=== PATIENT | female | born 1960 | race Caucasian/White ===

== ENCOUNTER → 2020-09-30 | Outpatient (CLI) | payer OTHER ==
[~2020-09-30] MED LIST: CYCLOBENZAPRINE5 MG PO; HYDROCODON-ACE1 EAC4 PO
== END ==
LOC: KOH-I 14:54
DX: M79.672 Pain in left foot (principal); M25.572 Pain in left ankle and joints of left foot
CPT/HCPCS: 73610; 73630

== ENCOUNTER → 2020-10-15 | Outpatient (CLI) | payer OTHER | LOC: KOH-I 08:00 | DX: M79.672 Pain in left foot (principal); M25.475 Effusion, left foot; G89.29 Other chronic pain; R93.7 Abnormal findings on diagnostic imaging of other parts of musculoskeletal system | CPT/HCPCS: 73718 ==

== ENCOUNTER → 2020-11-05 | Outpatient (CLI) | payer OTHER | LOC: EXRD 14:16 | DX: I82.409 Acute embolism and thrombosis of unspecified deep veins of unspecified lower extremity (principal); M79.669 Pain in unspecified lower leg | CPT/HCPCS: 93971 ==

== ENCOUNTER → 2021-02-08 | Outpatient (CLI) | payer OTHER | LOC: KOH-I 15:23 | DX: S92.342A Displaced fracture of fourth metatarsal bone, left foot, initial encounter for closed fracture (principal) | CPT/HCPCS: 73630 ==

== ENCOUNTER → 2021-10-13 | Outpatient (CLI) | payer BC, OTHER | LOC: HEART 5 08:43 | DX: I49.3 Ventricular premature depolarization (principal); R94.39 Abnormal result of other cardiovascular function study | CPT/HCPCS: 78452; A9502 ==

== ENCOUNTER → 2021-11-18 | Outpatient (CLI) | payer BC, OTHER | LOC: ECHO 10:00 | DX: R94.31 Abnormal electrocardiogram [ECG] [EKG] (principal); I08.3 Combined rheumatic disorders of mitral, aortic and tricuspid valves | CPT/HCPCS: ECHO; 93306 ==